=== PATIENT | male | born 1955 | race Caucasian/White ===

== ENCOUNTER 2023-06-26 11:07 | Day surgery (SDC) | payer OTHER ==
[2023-06-24 15:13] VITALS: BMI 28.8
[2023-06-26] MEDS ORDERED: Bupivacaine PF 0.5% 30 ML VIAL ONE (12:45)
[2023-06-26] MEDS ORDERED: PROPOFOL 20 ML ONE (12:48)
[2023-06-26] MEDS ORDERED: fentaNYL 50 mcg/mL 1 mL Vial ONE (12:48)
[2023-06-26] MEDS ORDERED: CEFAZOLIN 2 GM VIAL ONE (12:49)
[2023-06-26] MEDS ORDERED: Lidocaine 1% PF 5 ML VIAL ONE (12:50)
[2023-06-26] MEDS ORDERED: Ondansetron PF 4 MG/2 ML Vial ONE (13:23)
[2023-06-26] MEDS ORDERED: Dexamethasone 4 mg/ml Vial ONE (13:23)
[2023-06-26] MEDS ORDERED: Ketorolac Tromethamine 30 MG/ML VIAL ONE (13:27)
== END 2023-06-26 15:30 | disposition home or self-care (01) ==
LOC: CSHSDC 11:07
PROVIDERS: ATTEND Podiatrist Foot & Ankle Surgery
PROC: 0SGM04Z Fusion of Right Metatarsal-Phalangeal Joint with Internal Fixation Device, Open Approach (ICD-10-PCS; principal; 2023-06-26)
DX: M20.21 Hallux rigidus, right foot (principal); Z79.899 Other long term (current) drug therapy
CPT/HCPCS: J1100; J1885; J2405; J2704; J3010; S0020